=== PATIENT | male | born 1955 | race African-American/Black ===

== ENCOUNTER 2018-05-27 07:04 | Day surgery (SDC) | payer MEDICARE, OTHER ==
[2018-05-15 09:21] LABS: HEMATOCRIT 45.5 % (37.9-51.0); HEMOGLOBIN 15.8 g/dL (13.5-17.0); MEAN CORPUSCULAR HEMOGLOBIN 30.9 pg (27.0-33.4); MEAN CORPUSCULAR HGB CONC 34.7 g/dL (32.0-36.0); MEAN CORPUSCULAR VOLUME 89 fl (80-97); PLATELET COUNT 224 10^3/uL (150-450); RED BLOOD COUNT 5.11 10^6/uL (4.35-5.55); RED CELL DISTRIBUTION WIDTH 13.7 % (11.5-14.0); WHITE BLOOD COUNT 4.1 10^3/uL (4.0-10.5)
[~2018-05-27 07:04] MED LIST: ACETAMINOPHEN 325 MG TABLET PO PRN; CEFAZOLIN 1 GM/D5W RTU 1 GM/50 ML RTUPB IV PRN; LACTATED RINGERS 1000 ML IV PRN; LIDOCAINE 0.5% INJ-PF (5 MG/ML) 50 ML SDV SUBCUT PRN
[2018-05-27] MEDS ORDERED: CEFAZOLIN 1 GM/D5W RTU 1 GM/50 ML RTUPB IV ONE (07:11)
[2018-05-27] MEDS ORDERED: BUPIVACAINE HCL 0.25 % INJ/PF (2.5 MG/1 ML) 30 ML VIAL ONE (07:54)
[2018-05-27] MEDS ORDERED: ACETAMINOPHEN 1,000 MG/100 ML RTUPB IV ONE (09:10)
[2018-05-27] MEDS ORDERED: HYDROMORPHONE HCL INJ/PF 2 MG/ML AMPULE ONE (09:10)
[2018-05-27] MEDS ORDERED: MIDAZOLAM 2 MG/2 ML INJ ONE (09:10)
[2018-05-27] MEDS ORDERED: PROPOFOL INJ 200 MG/20 ML VIAL IV ONE (09:10)
[2018-05-27] MEDS ORDERED: MEPERIDINE HCL/PF INJ 25 MG/1 ML DISP.SYRIN IV PRN (10:19)
[2018-05-27] MEDS ORDERED: ONDANSETRON HCL INJ/PF 4 MG/2 ML SDV IV PRN (10:19)
[2018-05-27] MEDS ORDERED: PROMETHAZINE HCL INJ 25 MG/1 ML VIAL IV PRN (10:19)
[2018-05-27] MEDS ORDERED: MORPHINE SULFATE 10 MG/ML INJ IV PRN (10:19)
[2018-05-27] MEDS ORDERED: DIPHENHYDRAMINE HCL 50 MG/ML VIAL IV PRN (10:19)
[2018-05-27] MEDS ORDERED: FENTANYL CITRATE INJ/PF 100 MCG/2 ML AMPUL IV PRN ×3 (10:19)
[2018-05-27] MEDS ORDERED: DEXAMETHASONE SOD PHOSPHATE INJ 4 MG/1 ML VIAL ONE (10:22)
[2018-05-27] MEDS ORDERED: ONDANSETRON HCL INJ/PF 4 MG/2 ML SDV ONE (10:22)
[2018-05-27] MEDS ORDERED: SUCCINYLCHOLINE CHLORIDE INJ 200 MG/10 ML VIAL ONE (10:22)
[2018-05-27] MEDS ORDERED: PHENYLEPHRINE HCL INJ/PF 10 MG/1 ML SDV ONE (10:22)
[2018-05-27] MEDS ORDERED: GLYCOPYRROLATE 1 MG/5 ML SYRINGE ONE (10:22)
[2018-05-27] MEDS ORDERED: OXYCODONE-ACETAMINOPHEN 5-325 MG TABLET PO PRN (11:27)
--- NOTE | 2018-05-27 11:27 | Discharge Summary ---
Discharge Summary (SDC) - Discharge Final Diagnosis: umbilical hernia Date of Surgery: 05/27/18 Discharge Date: 05/27/18 Condition: Good Treatment or Instructions: [facility] [address], [place] [address] Discharge Instructions: Laparoscopic Surgery 1. General Information: a. DO NOT DRIVE a car or operate dangerous machinery for 3-4 days or while taking narcotic pain pills. b. DO NOT consume alcohol, tranquilizers, sleeping medications or any non- prescribed medications for 24 hours unless approved by your doctor or as long as taking narcotic prescription medications. c. DO NOT make important decisions or sign any important papers for the first 24 hours after surgery. d. When discharged home the same day of surgery have a responsible person with you for the first night. 2. Activity Restrictions: 8 weeks. a. NO heavy lifting, straining abdominal muscles, bending over a lot, yard work, house work, or sports for [address] for 3-4 days or while taking __Percocet . c. It is fine to go for walks, up and down steps, ride in a car. d. Elevate your head when sleeping/resting. 3. Treatment: a. You may shower 48 hours after surgery, no baths or swimming for 2 weeks. Leave paper strips (steri-strips) on the skin to fall off on their own. If still on at postoperative visit they will be removed then. b. Drainage of fluid or blood is not unusual from an incision. If occurs, you can clean with peroxide and cotton ball daily and cover with dry gauze until the wound seals. c. If a lot of bleeding occurs, you can hold pressure with a gauze or cloth over the site for 10 minutes and it will usually stop. If bleeding continues you will need to call for possible evaluation in office or emergency room. d. Wear abdominal binder daily 4. Medications: a. _Percocet_ may be taken for pain as needed, one tablet every 6 hours. Stop the narcotic when able since you cannot take it and drive, and they cause constipation. You may switch to plain Advil or Aleve as you transition from the narcotic. Many adults find good pain relief with Advil 600-800 mg three times a day with meals. This can cause indigestion, ulcers, and kidney problems with long-term use. b. You should resume all normal medications unless a change is specified by your doctors. 5. Diet: Normal diet 6. The following may occur after laparoscopic surgery: a. Shoulder or upper back ache from retained gas that should resolve in 1-2 days b. Soreness and bruising at incision sites will resolve with time. c. Scrotal swelling (labia in women) and bruising is often seen after hernia surgery. d. Sore throat e. Fatigue may last days to weeks. f. Difficulty urinating may occur and may need to come into emergency room for urinary catheter placement. 7. Notify Physician If: a. Worsening or pain not improved with pain medication b. Persistent nausea and vomiting c. Fever above 101 d. Persistent bleeding or swelling at operative site e. Unable to urinate and uncomfortable bladder 6-8 hours after surgery 8..Follow Up Care: a. Schedule a follow up appointment with your doctor for 2 weeks. In the event of any postoperative problems or questions or you may call the office during business hours or the On-Call physician evenings and weekends at [facility]. [facility] I understand the instructions for my postoperative care as described above and a copy has been given to me. Patient/Significant Other Witness Date Prescriptions: Oxycodone HCl/Acetaminophen [Percocet 5-325 mg Tablet] 1 tab PO Q6 PRN #20 tab PRN Reason: Referrals: BARTOLO FERNANDEZ MD [Primary Care Provider] - Discharge Diet: As Tolerated Discharge Activity: Balance Activity w/Rest, No Lifting Over 10 Pounds, No Lifting/Push/Pulling, Walk Frequently Report the Following to Your Physician Immediately: Nausea, Vomiting, Increase in Pain, Fever over 101 Degrees, Unusual Bleeding, Redness, Swelling, Warmth, Increased Soreness, Drainage-Foul Smelling
--- NOTE | 2018-05-27 11:28 | Operative Report ---
Operative Report DATE OF SURGERY: 05/27/18 PREOPERATIVE DIAGNOSIS: Umbilical herniorrhaphy POSTOPERATIVE DIAGNOSIS: Same OPERATION: Umbilical herniorrhaphy with 11.[address] placed intraperitoneally SURGEON: FERMIN ADAMSON 1ST WHEEL INSPECTOR: SHAHZAD DENNIS ANESTHESIA: GA TISSUE REMOVED OR ALTERED: Same COMPLICATIONS: none ESTIMATED BLOOD LOSS: None INTRAOPERATIVE FINDINGS: See below PROCEDURE: The patient was taken to the preop holding area the main operating room where general anesthesia was induced. Arms were abducted abdomen exposed, prepped and draped in sterile fashion and rotation set up for laparoscopic umbilical herniorrhaphy. Surgical plan surgical timeout were reviewed. Markings were made on the skin for 3 port laparoscopic surgery. Skin was anesthetized with 1% plain lidocaine in the left upper quadrant left lower quadrant and right mid field laterally. A left upper quadrant stab was made with 11 blade, Veress needle inserted the peritoneal cavity pneumoperitoneum was established. Veress needle was removed, 5 mm ports inserted a 5 mm viewing scope was inserted. Under direct visualization 2 additional ports were placed one in the left lower quadrant one in the right mid field. Careful inspection of the peritoneal cavity revealed no evidence of visceral injury or vascular injury. Of note there were adhesions between the anterior surface of the cecum and the lateral abdominal wall consistent with previous appendectomy. Regarding the anterior abdominal wall, there was some omentum, loose tongue, incarcerated into the umbilical hernia. This was removed up bluntly. We now debulked the retroperitoneal fat that was incarcerated into the defect. Once this was accomplished using electrocautery, and blunt dissection, the hernia defect was revealed. It was approximately 2-1/2 inches in diameter. Photos taken. We now closed the defect transversely with 3 #1 PDS sutures. 2 of these were applied in a [id number] fashion and one in a single loop fashion. We secured the knots thereby approximating the fascia with the abdominal cavity decompressed of air. This effectively obliterated the hernia defect. We now brought onto the field and 11.5 cm Bard mesh, V[address] ST, heart rate at the 12, 3, 6, and 9:00 positions, placed 0 PDS sutures in the respective positions, moistened it, rolled it and brought up through the intra-abdominal wall at the right mid lateral port site. The mesh was unfolded, and then brought up to the anterior abdominal wall using the transabdominal, disposable suture passer again at the 12, 3, 6, and 9:00 positions. The 6 o'clock position suture pulled through the mesh and was left in situ. We now came around in 2 circumferential rows and deployed approximately 20 elizabeth using this sure tack stapler. The mesh was satisfactorily apposed to the anterior abdominal wall. Final photos were taken. We were very satisfied with the final. We checked for bleeding and any evidence of visceral injury and there was none the abdomen was decompressed of pneumoperitoneum, ports removed, wounds closed with 3-0 Vicryl benzoin Steri-Strips. Patient tolerated procedure well, extubated, and taken recovery in stable condition.
[2018-05-27] MEDS: FENTANYL CITRATE INJ/PF 100 MCG/2 ML AMPUL ONE ×2 (11:47→11:53)
[2018-05-27] MEDS ORDERED: OXYCODONE-ACETAMINOPHEN 5-325 MG TABLET ONE (12:29)
[2018-05-27 13:45] VITALS: BP 123/78
== END 2018-05-27 13:47 | disposition home or self-care (01) ==
LOC: OROUT 07:04
PROVIDERS: ATTEND Surgery
DX: K42.9 Umbilical hernia without obstruction or gangrene (principal); J45.909 Unspecified asthma, uncomplicated; E83.52 Hypercalcemia; I10 Essential (primary) hypertension; K66.0 Peritoneal adhesions (postprocedural) (postinfection); J45.990 Exercise induced bronchospasm; Z96.641 Presence of right artificial hip joint; Z79.51 Long term (current) use of inhaled steroids; Z79.1 Long term (current) use of non-steroidal anti-inflammatories (NSAID); Z79.899 Other long term (current) drug therapy
CPT/HCPCS: 36415; 85027; 49585; C1781; J2250; J0690; J1100; J3010; A9270; J1170; J2370; J0330; J2405; J2704; J0131; J3490; 750

== ENCOUNTER 2018-05-31 10:15 | Emergency (ER) | payer MEDICARE, OTHER ==
--- NOTE | 2018-05-31 10:37 | ER Document Report ---
ED Medical Screen (RME) - General Chief Complaint: Breathing Difficulty Stated Complaint: DIFFICULTY BREATHING Time Seen by Provider: 05/31/18 10:35 Primary Care Provider: BARTOLO FERNANDEZ MD [Primary Care Provider] - Follow up as needed Mode of Arrival: Ambulatory Information source: Patient, Relative TRAVEL OUTSIDE OF THE [place] IN LAST 30 DAYS: No - HPI Patient complains to provider of: dyspnea Onset: Yesterday - pt is S/P umbilical hernia repair 4 days ago -- now with dyspnea and SOB. Denies CP - Related Data Allergies/Adverse Reactions: No Known Allergies Allergy (Verified 05/31/18 10:18) Past Medical History - Past Medical History Cardiac Medical History: Reports: Hx Coronary Artery Disease, Hx Hypercholesterolemia, Hx Hypertension Denies: Hx Heart Attack Pulmonary Medical History: Reports: Hx Asthma Denies: Hx Bronchitis, Hx COPD, Hx Pneumonia Neurological Medical History: Denies: Hx Cerebrovascular Accident, Hx Seizures Renal/ Medical History: Denies: Hx Peritoneal Dialysis Musculoskeltal Medical History: Reports Hx Arthritis Past Surgical History: Reports: Hx Abdominal Surgery - Hernia, Hx Appendectomy, Hx Orthopedic Surgery - Immunizations Hx Diphtheria, Pertussis, Tetanus Vaccination: Yes History of Influenza Vaccine for 12/2016 - 05/2017 Season: No Physical Exam - Vital signs Vitals: Temp Pulse Resp BP Pulse Ox 98.3 F 76 16 132/66 H 95 05/31/18 10:18 05/31/18 10:18 05/31/18 10:18 05/31/18 10:18 05/31/18 10:18 Course - Vital Signs Vital signs: Temp Pulse Resp BP Pulse Ox 98.3 F 76 16 132/66 H 95 05/31/18 10:18 05/31/18 10:18 05/31/18 10:18 05/31/18 10:18 05/31/18 10:18 Doctor's Discharge - Discharge Referrals: BARTOLO FERNANDEZ MD [Primary Care Provider] - Follow up as needed
[2018-05-31 11:20] LABS: ALANINE AMINOTRANSFERASE 106 U/L (21-72); ALBUMIN 4.1 g/dL (3.5-5.0); ALKALINE PHOSPHATASE 86 U/L (38-126); ANION GAP 8 (5-19); ASPARTATE AMINO TRANSFERASE 74 U/L (17-59); BILIRUBIN,DIRECT 0.3 mg/dL (0.0-0.4); BILIRUBIN,TOTAL 0.8 mg/dL (0.2-1.3); BLOOD UREA NITROGEN 14 mg/dL (7-20); CALCIUM 10.5 mg/dL (8.4-10.2); CARBON DIOXIDE 26 mmol/L (22-30); CHLORIDE 102 mmol/L (98-107); GLUCOSE 103 mg/dL (75-110); POTASSIUM 4.1 mmol/L (3.6-5.0); SODIUM 136.4 mmol/L (137-145); TOTAL PROTEIN 7.1 g/dL (6.3-8.2)
[2018-05-31 11:23] LABS: ABSOLUTE EOSINOPHILS # (AUTO) 0.2 10^3/uL (0.0-0.6); ABSOLUTE LYMPHOCYTES (AUTO) 1.5 10^3/uL (0.5-4.7); ABSOLUTE MONOCYTES (AUTO) 0.5 10^3/uL (0.1-1.4); BASOPHILS % (AUTO) 0.3 % (0-2); EOSINOPHILS % (AUTO) 3.3 % (0-6); HEMATOCRIT 44.4 % (37.9-51.0); HEMOGLOBIN 15.6 g/dL (13.5-17.0); LYMPHOCYTES % (AUTO) 28.5 % (13-45); MEAN CORPUSCULAR HEMOGLOBIN 31.2 pg (27.0-33.4); MEAN CORPUSCULAR HGB CONC 35.1 g/dL (32.0-36.0); MEAN CORPUSCULAR VOLUME 89 fl (80-97); MONOCYTES % (AUTO) 10.6 % (3-13); PLATELET COUNT 218 10^3/uL (150-450); RED CELL DISTRIBUTION WIDTH 13.4 % (11.5-14.0); SEGMENTED NEUTROPHILS % (AUTO) 57.3 % (42-78); TOTAL CELLS COUNTED % (AUTO) 100 %; WHITE BLOOD COUNT 5.2 10^3/uL (4.0-10.5)
[2018-05-31 11:41] LABS: CREATINE KINASE 395 U/L (55-170)
[2018-05-31 12:01] LABS: NT PRO BNP 33 pg/mL (5-900)
[2018-05-31 12:02] LABS: TROPONIN I < 0.012 ng/mL
--- NOTE | 2018-05-31 12:24 | RADIOLOGY REPORT (SQ) ---
EXAM DESCRIPTION: ACUTE ABDOMEN SERIES COMPLETED DATE/TIME: 05/31/2018 11:47 am REASON FOR STUDY: SOB COMPARISON: CT abdomen pelvis 04/23/2013 NUMBER OF VIEWS: Three views. TECHNIQUE: Frontal chest, supine abdomen and upright abdomen radiographic images acquired. LIMITATIONS: None. FINDINGS: CHEST: No acute infiltrates. Cardiac silhouette size, romeo unremarkable. Convex rightwar d thoracic curvature. FREE AIR: None. No abnormal gas collections. BOWEL GAS PATTERN: Nonspecific nonobstructive bowel gas pattern with air in stomach and nondistended small bowel and colon. Rectosigmoid air bubbles are present. CALCIFICATIONS: Left distal ureteral calculus seen on CT 04/23/2013 is no longer identified. HARDWARE: None in the abdomen. SOFT TISSUES: No gross mass or suggestion of organomegaly. BONES: No acute findings OTHER: No other significant finding. IMPRESSION: Nonspecific bowel gas pattern. Distal left ureteral stone seen on CT exam 04/23/2013 is no longer identified TECHNICAL DOCUMENTATION: JOB ID: [id number]- All Rights Reserved Reading location - IP/workstation name: [email or web address]
[2018-05-31] MEDS ORDERED: IPRATROPIUM/ALBUTEROL 0.5-2.5 MG/3 ML AMPUL NEB ONE (13:08)
--- NOTE | 2018-05-31 14:16 | RADIOLOGY REPORT (SQ) ---
EXAM DESCRIPTION: CTA CHEST COMPLETED DATE/TIME: 05/31/2018 2:07 pm REASON FOR STUDY: SOB, MAGALLANES, recent abd surgery, elevated d-dimer shorter of breath COMPARISON: Abdominal films 05/31/2018 TECHNIQUE: CT scan of the chest performed using helical scanning technique with dynamic intravenous contrast injection. Images reviewed with lung, soft tissue and bone windows. Reconstructed coronal and sagittal MPR images reviewed. Additional 3 dimensional post-processing performed to develop Maximal Intensity Projection images (PA P). All images stored on PACS. All CT scanners at this facility use dose modulation, iterative reconstruction, and/or weight based d osing when appropriate to reduce radiation dose to as low as reasonably achievable (ALARA). [facility]: Dose Right [facility]: CareDose [facility]: Dose Right [facility]: Teradose 4D [facility]: Rebelle CONTRAST TYPE AND DOSE: contrast/concentration: Isovue 350.00 mg/ml; Total Contrast Delivered: 86.0 ml; Total Saline Delivered: 80.0 ml Contrast bolus optimized for the pulmonary arteries and thoracic aorta. RENAL FUNCTION: Creatinine 0.8 RADIATION DOSE: CT Rad equipment meets quality standard of care and radiation dose reduction techniq ues were employed. CTDIvol: 35.9 - 49.6 mGy. DLP: 1366 mGy-cm. . LIMITATIONS: None. FINDINGS: LUNGS AND PLEURA: Minimal bandlike atelectasis is present at both lung bases. No dense co nsolidation worrisome for pneumonia. No pulmonary edema or pleural effusions. No pneumothorax. AORTA AND GREAT VESSELS: No aneurysm. No thoracic aortic dissection. HEART: No pericardial effusion. No significant coronary artery calcifications. PULMONARY ARTERIES: No emboli visualized in the main pulmonary arteries or the segmental branches. HILAR AND MEDIASTINAL STRUCTURES: No identified masses or abnormal nodes. HARDWARE: None in the chest. UPPER ABDOMEN: Small hiatal hernia. Fatty liver. No upper abdominal free fluid or free air THYROID AND OTHER SOFT TISSUES: No masses. No adenopathy. BONES: No acute or significant finding. 3D MIPS: Confirm above findings. OTHER: No other significant finding. IMPRESSION: No CT angio evidence of acute pulmonary emboli or thoracic aortic dissection COMMENT: Quality ID # [id number]: Final reports with documentation of one or more dose reduction techniques (e.g., Automated exposure control, adjustment of the mA and/or kV according to patient size, use of iterative reconstruction technique) TECHNICAL DOCUMENTATION: JOB ID: [id number] [employer]- All Rights Reserved Reading location - IP/workstation name: [email or web address]
[2018-05-31 15:06] VITALS: BP 140/79
--- NOTE | 2018-05-31 16:43 | ER Document Report ---
Entered by GORGE FUENTES SCRIBE 05/31/18 1120 Acting as scribe for:YUMI SILVA MD ED General - General Chief Complaint: Breathing Difficulty Stated Complaint: DIFFICULTY BREATHING Time Seen by Provider: 05/31/18 10:35 Primary Care Provider: BARTOLO FERNANDEZ MD [Primary Care Provider] - Follow up as needed Mode of Arrival: Ambulatory Information source: Patient, Relative, [facility] Records Notes: Patient is a 63 year old male with HTN, BPH, hyperlipidemia, asthma, arthritis, depression presents to the emergency department complaining of difficulty breathing onset this morning. Patient states he began to have nasal congestion last night and woke up around 0200 with dyspnea described as "not breathing right" and "not getting enough air". He states he proceeded to use his albuterol inhaler and a saline rinse which he felt possibly helped his symptoms. Patient was able to ambulate to the bathroom in the ED and back without becoming short of breath. He states he is currently asymptomatic. Of significance, patient recently had umbilical hernia repair 4 days ago. TRAVEL OUTSIDE OF THE [place] IN LAST 30 DAYS: No - Related Data Allergies/Adverse Reactions: No Known Allergies Allergy (Verified 05/31/18 10:18) Past Medical History - General Information source: Patient, Relative, [facility] Records - Social History Smoking Status: Never Smoker Cigarette use (# per day): No Chew tobacco use (# tins/day): No Smoking Education Provided: No Frequency of alcohol use: None Occupation: Retired Lives with: Spouse/Significant other Family History: Reviewed & Not Pertinent Patient has suicidal ideation: No Patient has homicidal ideation: No - Past Medical History Cardiac Medical History: Reports: Hx Hypercholesterolemia, Hx Hypertension Pulmonary Medical History: Reports: Hx Asthma Musculoskeletal Medical History: Reports Hx Arthritis Past Surgical History: Reports: Hx Abdominal Surgery - Hernia, Hx Appendectomy, Hx Orthopedic Surgery - Immunizations Hx Diphtheria, Pertussis, Tetanus Vaccination: Yes Review of Systems - Review of Systems Constitutional: No symptoms reported EENT: No symptoms reported Cardiovascular: No symptoms reported Respiratory: See HPI Gastrointestinal: No symptoms reported Genitourinary: No symptoms reported Male Genitourinary: No symptoms reported Musculoskeletal: No symptoms reported Skin: No symptoms reported Hematologic/Lymphatic: No symptoms reported Neurological/Psychological: No symptoms reported -: Yes All other systems reviewed and negative Physical Exam - Vital signs Vitals: Temp Pulse Resp BP Pulse Ox 98.3 F 76 16 132/66 H 95 05/31/18 10:18 05/31/18 10:18 05/31/18 10:18 05/31/18 10:18 05/31/18 10:18 - Notes Notes: GENERAL: Alert, interacts well. No acute distress. HEAD: Normocephalic, atraumatic. EYES: Pupils equal, round, and reactive to light. Extraocular movements intact. ENT: Oral mucosa moist, tongue midline. Nasal congestion Nares patent, no nasal septal hematoma, TM's intacts. NECK: Full range of motion. Supple. Trachea midline. LUNGS: Clear to auscultation bilaterally, no wheezes, rales, or rhonchi. No respiratory distress. HEART: Regular rate and rhythm. No murmurs, gallops, or rubs. ABDOMEN: Soft, obese, non-tender. Non-distended. Bowel sounds present in all 4 quadrants. No guarding, rigidity, or rebound. EXTREMITIES: Moves all 4 extremities spontaneously. Radial pulses 2/4 bilaterally. NEUROLOGICAL: Alert and oriented x3. Normal speech. PSYCH: Normal affect, normal mood. SKIN: Warm, dry, normal turgor. No rashes or lesions noted. Course - Vital Signs Vital signs: Temp Pulse Resp BP Pulse Ox 98.3 F 76 16 132/66 H 95 05/31/18 10:18 05/31/18 10:18 05/31/18 10:18 05/31/18 10:18 05/31/18 10:18 - Laboratory Result Diagrams: 05/31/18 10:35 05/31/18 10:35 Laboratory results interpreted by me: 05/31/18 05/31/18 05/31/18 10:35 10:35 10:35 D-Dimer 0.82 H Sodium 136.4 L Calcium 10.5 H AST 74 H ALT 106 H Creatine Kinase 395 H - Diagnostic Test Radiology reviewed: Reports reviewed - CTA chest does not show any acute abnormalities or explanation for his dyspnea. - EKG Interpretation by [place] EKG shows normal: Sinus rhythm, Collins, Intervals, QRS Complexes, ST-T Waves Rate: Normal - 68 Rhythm: NSR Discharge - Discharge Clinical Impression: Shortness of breath, Panic attack, Anxiety Condition: Stable Disposition: HOME, SELF-CARE Additional Instructions: Panic Attack The cause of panic attacks is unknown. Symptoms can include chest pain, shortness of breath, palpitations, sweats, and a sense of smothering or impending doom. In time, the panic attacks can lead to generalized anxiety and phobias. Because the symptoms can mimic heart attack, pulmonary embolism, and other serious diseases, the physician has evaluated you for these conditions. There is no evidence of a serious problem. An acute panic attack usually goes away by itself without treatment. A severe attack can be treated with medicine to calm you. Long-term, antidepressant medicines may help prevent attacks. Counselling can also be very beneficial in dealing with panic attacks. Panic attacks are less likely if you are getting regular exercise, proper diet, and plenty of sleep. It's normal for panic attacks to cause many frightening symptoms. However, you should call or return if your symptoms change significantly or if you are worsening. Be sure to drink plenty of water today, to help flush out the IV contrast he received. Follow-up with your doctor this week if not improving. RETURN TO THE EMERGENCY ROOM IF ANY NEW OR WORSENING SYMPTOMS. Referrals: BARTOLO FERNANDEZ MD [Primary Care Provider] - Follow up as needed Scribe Attestation: 05/31/18 13:10 I personally performed the services described in the documentation, reviewed and edited the documentation which was dictated to the scribe in my presence, and it accurately records my words and actions. I personally performed the services described in the documentation, reviewed and edited the documentation which was dictated to the scribe in my presence, and it accurately records my words and actions.
--- NOTE | 2018-05-31 20:12 | EKG REPORT ---
SEVERITY:- NORMAL ECG - SINUS RHYTHM : Confirmed by: Cuca Concepcion MD 31-May-2018 20:12:06
== END 2018-05-31 15:05 | disposition home or self-care (01) ==
LOC: ER 10:15
DX: F41.0 Panic disorder [episodic paroxysmal anxiety] (principal); F41.9 Anxiety disorder, unspecified; J45.909 Unspecified asthma, uncomplicated; R06.02 Shortness of breath; I10 Essential (primary) hypertension; R09.81 Nasal congestion; Z98.890 Other specified postprocedural states
CPT/HCPCS: 93005; 94640; 99285; 36415; 82550; 85025; 80053; 84484; 85379; 83880; 74022; 71275; 93010; A9270; J7620